=== PATIENT | female | born 1990 | race American Indian/Alaskan Native ===

== ENCOUNTER 2020-03-10 17:01 | Outpatient (CLI) | payer OTHER ==
[2020-03-10 17:41] VITALS: BP 129/82
[2020-03-10] MEDS ORDERED: LACTATED RINGERS 500 ML IV ONE (18:56)
[2020-03-10 19:57] LABS: Bacteria,Urine 1+ /HPF (Negative); Bilirubin,Urine NEG (Negative); Blood,Urine SM (Negative); Color,Urine Yellow (Yellow); Mucus,Urine 3+ /HPF
== END 2020-03-10 19:48 | disposition home or self-care (01) ==
LOC: APU 17:01 → TRG 17:01 → APU 17:02 → TRG 19:48
PROVIDERS: ATTEND Obstetrics & Gynecology
DX: O26.893 Other specified pregnancy related conditions, third trimester (principal); R10.9 Unspecified abdominal pain; M54.5 Low back pain; Z3A.33 33 weeks gestation of pregnancy
CPT/HCPCS: 59025; 81001